=== PATIENT | male | born 1955 | race Caucasian/White ===

== ENCOUNTER → 2018-12-18 | Outpatient (CLI) | payer MEDICARE, BC ==
[~2018-12-18] MED LIST: ASPI1CHW3 PO; ATOR80TA59 PO; CENT1TAB PO; CONRAY-43 43% 50ML VIAL (Q9960) As Ordered ONE; HYDR25TA PO; KEFL500C17 PO; LABE200T32 PO; LIDOCAINE 1% MDV 20ML VIAL As Ordered ONE; MAGO400T2 PO; NEUR300C PO; NITR0.4D6 TD; NITR0.4S14 SL; NORV5TAB PO; OMEP-218 PO; PERC5TAB12 PO; PLAV1TAB2 PO; TRIAMCINOLONE ACETONIDE SUSP 40 MG/ML VIAL (J3301) As Ordered ONE; TYLE650T35 PO; VALS1TAB67 PO; XARE10TA PO
--- NOTE | 2018-12-19 10:08 | REP ---
Reason For Exam/Comment: Osteoarthritis of the left hip Procedure: Left hip arthrocentesis The procedure was performed by RENATA Bonner, under the direct supervision of Dr. Ford. The benefits and risks including but not limited to pain, infection, bleeding and anaphylaxis were explained to the patient and informed consent was obtained both verbally and written. Directly prior to the start of the procedure, a formal timeout was completed in the procedure room. The left femoral neck was localized using fluoroscopic guidance. The skin was prepped and draped in the usual sterile fashion. 5 mL of 1% lidocaine was used as a local anesthetic. Using fluoroscopic guidance a 22-gauge spinal needle was inserted and advanced to the femoral neck joint space. 2 mL of Conray 43 was injected to verify needle placement. A 6 mL solution containing a 5 mL 1% lidocaine 10 mg/ml and 1 mL of Kenalog 40 mg/ml was injected into the joint. The needle was removed and hemostasis was achieved. The patient tolerated the procedure well and there were no immediate complications. 0.1 minutes of fluoroscopy time was utilized for this procedure. Some fluoroscopic images are performed with last image hold technology. These images require no additional radiation. Reviewed by RENATA Hnies 12/18/2018 12:00 P Electronically Signed by Asa Ford MD 12/19/2018 10:00 A
== END ==
LOC: M RADPRO 09:50
PROVIDERS: ATTEND Orthopaedic Surgery
DX: M16.12 Unilateral primary osteoarthritis, left hip (principal)
CPT/HCPCS: 20610; 77002; J3301; Q9960

== ENCOUNTER → 2019-03-20 | Outpatient (CLI) | payer MEDICARE, BC ==
[~2019-03-20] MED LIST changes: -ASPI1CHW3 PO; +ASPI81CH44 PO; -CONRAY-43 43% 50ML VIAL (Q9960) As Ordered ONE; -KEFL500C17 PO; -LIDOCAINE 1% MDV 20ML VIAL As Ordered ONE; -PERC5TAB12 PO; -TRIAMCINOLONE ACETONIDE SUSP 40 MG/ML VIAL (J3301) As Ordered ONE; -XARE10TA PO
[2019-03-20 09:22] LABS: HEMATOCRIT 38.9 % (42.0-52.0); HEMOGLOBIN 12.6 g/dl (13.5-17.5); MEAN CORPUSCULAR HEMOGLOBIN 28.8 pg (27.0-33.0); MEAN CORPUSCULAR HGB CONC 32.4 g/dl (32.0-36.5); PLATELET COUNT, AUTOMATED 265 10^3/uL (150-450); RED BLOOD COUNT 4.37 10^6/uL (4.30-6.10); WHITE BLOOD COUNT 7.2 10^3/uL (4.0-10.0)
[2019-03-20 09:33] LABS: INR 0.99; PROTHROMBIN TIME 12.8 SECONDS (11.8-14.0)
[2019-03-20 09:49] LABS: ALBUMIN 3.9 GM/DL (3.2-5.2); ALT/SGPT 62 U/L (12-78); BILIRUBIN,TOTAL 0.7 MG/DL (0.2-1.0); BLOOD UREA NITROGEN 13 MG/DL (7-18); CALCIUM LEVEL 9.6 MG/DL (8.8-10.2); CARBON DIOXIDE LEVEL 29 MEQ/L (21-32); CHLORIDE LEVEL 103 MEQ/L (98-107); CREATININE FOR GFR 1.15 MG/DL (0.70-1.30); GLOMERULAR FILTRATION RATE > 60.0 (>49); GLUCOSE, FASTING 114 MG/DL (70-100); POTASSIUM SERUM 4.3 MEQ/L (3.5-5.1); SODIUM LEVEL 139 MEQ/L (136-145); TOTAL PROTEIN 7.4 GM/DL (6.4-8.2)
[2019-03-20 09:57] LABS: ERYTHROCYTE SEDIMENTATION RATE 21 mm/hr (0-20)
--- NOTE | 2019-03-20 10:37 | REP ---
PA and lateral chest: There are no comparisons. The there is a 10 mm nodule in the left costophrenic angle. In the absence of comparison studies to document stability, I would recommend chest CT for further evaluation. The lung david otherwise clear. Cardiac size is upper normal. The reina, mediastinum, and skeletal structures are unremarkable. Impression: 10 mm nodule in the left costophrenic angle. Follow-up CT is recommended in the absence of comparison studies to document stability. Otherwise, negative PA and lateral chest. Electronically Signed by Asa Rodriguez MD 03/20/2019 10:29 A
--- NOTE | 2019-03-21 10:03 | ECGEPIP ---
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
== END ==
LOC: M LAB 08:33
PROVIDERS: ATTEND Orthopaedic Surgery
DX: M16.12 Unilateral primary osteoarthritis, left hip (principal)

== ENCOUNTER 2019-04-06 10:54 | Inpatient (IN) | payer MEDICARE, BC ==
--- NOTE | 2019-03-31 17:04 | HPE ---
DATE OF SCHEDULED ADMISSION: 04/06/2019 ATTENDING PHYSICIAN: Dr. Imer Sargent CHIEF COMPLAINT: Left hip pain and stiffness. HISTORY: The patient is a 63-year-old male with progressively worsening left hip pain and stiffness. He failed to improve with conservative measures. He continues to have symptoms with weightbearing activities and activities of daily living. He consented for an elective left total hip arthroplasty with Dr. Sargent for his continued symptoms. Medical optimization pending with Dr. Sofia and was not available for review. CURRENT MEDICATIONS: - valsartan 160 mg every evening - amlodipine 5 mg daily - aspirin 81 mg daily - Plavix 75 mg daily - omeprazole 20 mg daily - hydralazine 25 mg daily - labetalol 200 mg twice daily - atorvastatin 80 mg every evening - gabapentin 300 mg twice daily - MagOx 400 mg daily - nitroglycerin 0.4 mg as needed ALLERGIES: CIPROFLOXACIN. CHRONIC MEDICAL CONDITIONS: Hypertension, hyperlipidemia, gastroesophageal reflux disease, history of acute myocardial infarction, arthritis. PAST SURGICAL HISTORY: Coronary artery stenting. SOCIAL HISTORY: The patient is a former smoker and does use alcohol daily. REVIEW OF SYSTEMS: The patient denies fevers, chills, nausea, vomiting or diarrhea. Denies chest pain, shortness of breath, lightheadedness, dizziness or headaches. Denies any recent upper respiratory or urinary tract infection symptoms. He continues to have left hip pain with weightbearing activities and activities of daily living. PHYSICAL EXAMINATION: General: Well-nourished, well-developed male in no apparent distress. He is alert, oriented and cooperative. Mood and affect are appropriate. Vital signs: Height 66 inches, weight 162 pounds, temperature 98.6, blood pressure 120/78, heart rate 64, respirations 17. Neck: Supple without lymphadenopathy. Heart: Regular rate and rhythm. Lungs: Clear to auscultation bilaterally. Abdomen: Soft, nontender to palpation. Bowel sounds are present. Musculoskeletal: Left hip exhibits no gross abnormalities. Skin is intact. The patient has tenderness to palpation along the groin. He does have decreased internal rotation of the hip with associated pain. Left lower extremity strength is 5/5. Calf is soft, nontender to palpation with no palpable cords noted. He is neurovascularly intact distally. LABORATORY DATA: Chest x-ray: 10 mm nodule in the left costophrenic angle, recommending a CT scan. Otherwise negative PA and lateral chest. EKG: Sinus rhythm. Pro-thrombin time 12.8, INR 0.99. Comprehensive metabolic profile: Fasting glucose elevated at 114, BUN 13, creatinine 1.15, GFR greater than 60. Sodium 139, potassium 4.3, chloride 103, carbon dioxide 29, anion gap decreased at 7, calcium 9.6, AST 35, ALT 62, alkaline phosphatase 104, total bilirubin 0.4, total protein 7.4, albumin 3.9, albumin-globulin ratio 1.11. Complete blood count, ESR elevated at 21, WBCs 7.2, RBCs 4.37, hemoglobin decreased at 12.6, hematocrit decreased at 38.9, platelets 265. IMPRESSION: Left hip osteoarthritis with x-rays notable for end-stage degenerative changes. PLAN: The patient has consented for an elective left total hip arthroplasty with Dr. Sargent for his continued symptoms. Medical optimization is pending with Dr. Sofia. We will ensure Dr. Sofia is aware of the patient's pulmonary nodule and has appropriate follow-up. This should not delay surgery. CHANELL
[~2019-04-06] VITALS: Ht 167.6 cm; Wt 72.5 kg
[2019-04-06] VITALS (7 sets, daily range): BP systolic 148–175; BP diastolic 70–86
[~2019-04-06 10:54] MED LIST changes: +LR 1,000 ML IV ONE; +ceFAZolin SOD 2 GM in IV 1 EA IV ONE
[2019-04-06] MEDS ORDERED: BUPIVACAINE HCL 0.5% 30 ML VIAL As Ordered ONE (12:23)
[2019-04-06] MEDS ORDERED: LIDOCAINE 2% INJ 100 MG/5 ML SDV (FOR ANES.) As Ordered ONE (12:23)
[2019-04-06] MEDS ORDERED: ONDANSETRON 4MG/2ML VIAL (J2405) As Ordered ONE (12:23)
[2019-04-06] MEDS ORDERED: MIDAZOLAM INJ 2 MG/2 ML VIAL (J2250) As Ordered ONE (12:24)
[2019-04-06] MEDS ORDERED: fentaNYL 100 MCG/2 ML INJECTION (J3010) As Ordered ONE (12:24)
[2019-04-06] MEDS ORDERED: PROPOFOL 500 MG/50 ML VIAL As Ordered ONE (12:26)
[2019-04-06] MEDS ORDERED: TRANEXAMIC ACID 100 MG/ML 10ML VIAL As Ordered ONE (13:25)
[2019-04-06] MEDS ORDERED: ceFAZolin 1GM INJ (J0690 PER 500MG) As Ordered ONE (13:25)
[2019-04-06] MEDS ORDERED: EPINEPHrine INJ 1 MG/ML 1ML AMP As Ordered ONE (13:25)
[2019-04-06] MEDS ORDERED: BUPIVACAINE LIPOSOME/PF 1.3% 20ML VIAL (13.3MG/ML)(EXPAREL)(C9290 PER1MG) As Ordered ONE (13:26)
--- NOTE | 2019-04-06 13:50 | HPE ---
DATE OF ADMISSION: 04/06/2019 The patient seen and examined. He wishes to g o ahead with a left total hip arthroplasty. He understands the nature of this, the risks of bleeding, infection, damage to nerves, vessels, persistent pain, wear loosening, dislocation, leg length inequality, blood clots, medical problems, , among others. He understands the alternative weightbearing surfaces. A preoperative clearance was obtained. There was a chest x-ray abnormality that is going to be followed up by his primary.
[2019-04-06] MEDS ORDERED: PHENYLephrine HCL 500 MCG/5 ML (100MCG/ML) SYRINGE (J2370) As Ordered ONE (14:52)
[2019-04-06] MEDS ORDERED: PROPOFOL 200 MG/20 ML VIAL As Ordered ONE (15:02)
[2019-04-06] MEDS ORDERED: FLEET ENEMA PR PRN (16:00)
[2019-04-06] MEDS ORDERED: ONDANSETRON 4MG/2ML VIAL (J2405) IV PRN ×2 (16:00)
[2019-04-06] MEDS ORDERED: PERCOCET 5MG/325MG TAB PO PRN (16:00)
[2019-04-06] MEDS ORDERED: LR 1,000 ML IV SCH ×2 (16:00)
[2019-04-06] MEDS ORDERED: fentaNYL 100 MCG/2 ML INJECTION (J3010) IV PRN (16:00)
[2019-04-06] MEDS ORDERED: MORPHINE 4 MG/ML 1ML VIAL/SYRINGE (J2270) IV PRN ×2 (16:00)
--- NOTE | 2019-04-06 16:52 | RO ---
DATE OF PROCEDURE: 04/06/2019 PREOPERATIVE DIAGNOSIS: Left hip osteoarthritis and avascular necrosis (AVN). POSTOPERATIVE DIAGNOSIS: Left hip osteoarthritis and avascular necrosis. PROCEDURE: Left hip total hip arthroplasty using a DePuy Isabella size 4 standard +1.5 36 ball and 52 acetabular component. SURGEON: Imer Sargent MD HISTOLOGIC AIDE: MORE Davalos ESTIMATED BLOOD LOSS: 200 mL. COMPLICATIONS: None. INDICATIONS: This is a 63-year-old gentleman who has had gradually worsening left hip pain. He has x-ray evidence of AVN and arthritis. He wished to go ahead with surgical treatment. He understood the nature of this, the risks. He had trialed conservative management. DESCRIPTION OF PROCEDURE: The patient was taken to the operating room and placed in the right lateral decubitus position on the [place] positioner. The left hip was prepped and draped in the usual sterile fashion. A time-out was performed. I then created a longitudinal incision over the lateral aspect of the hip. Sharp dissection was carried down through subcutaneous tissue. I controlled hemostasis with cautery, incised the fascia calli and then divided the anterior 40% of the abductor off of the anterior aspect of the hip exposing the femur. I was then able to dislocate the hip without difficulty and put the leg in the bag. The canal initiating reamer followed by the canal finding reamer, lateralizing reamer and then sequentially reamed up to a size 4, which had good purchase. We templated a 4 to a 5. I then cut the head off with a saw at about three-quarters of a fingerbreadth up from the lesser trochanter. I then directed attention to the acetabulum. Anterior-posterior retractors were placed. I removed soft tissue from around the acetabulum and then sequentially reamed up to a size 51, which had good bleeding bone, good concentric reaming. I was able to medialize . I then selected a 52 cup, impacted this in place in the appropriate amount of anteversion and horizontal tilt. The cup was well seated, very solid. I then placed the apex hole eliminator, placed the polyethylene 36 x 52, impacted this in place, made sure it was seated with a [place]. I then directed attention back to the femur and sequentially broached up to a size 4, which had excellent fit and fill and was just about at the neck cut. I then trialed off of this and a +1.5 standard seemed to be the most appropriate fit. Excellent stability, soft tissue tension. There was minimal shuck in full extension. There was no instability with extension external rotation or flexion internal rotation. I had irrigated multiple times. I then removed the trial components and irrigated again. I placed the Exparel in the deep tissues, impacted the actual stem in, size 4 standard, made sure it was well seated, then dried the Ariel taper, impacted the head on and reduced the hip with the cashier assistant's help. I then put the hip through range of motion. Excellent stability and range of motion were noted. Minimal shuck noted. TXA was placed in the deep tissues. I then did a final deep irrigation and repaired the minimus with #1 Vicryl suture, the abductor with #1 Vicryl suture with several stitches being placed through bone. Irrigated, repaired the fascia calli with #1 Vicryl suture and running Stratafix in both directions. I then irrigated, closed the subcu with #2-0 Vicryl and the skin with merritt. Sterile dressing was applied. He was taken to the recovery room in stable condition. There were no known complications. The plan will be routine postop. The cashier assistant was instrumental in holding retractors and assisting in reducing and dislocating the hip and assisting in wound closure.
--- NOTE | 2019-04-06 17:06 | HPEPDOC ---
General Date of Admission Apr 06, 2019 at 10:54 Date of Service: Apr 06, 2019 Attending Physician: CLEVELAND HOLLY MD Chief Complaint The patient is a 63-year-old male admitted with a reason for visit of Arthritis Left Hip. Source: Patient, RN/MD Exam Limitations: Physical impairment Timing/Duration: Week(s), Getting worse, Changing over time Severity: Severe Associated Symptoms: Other (pain status post left total hip arthroplasty) History of Present Illness Consultation patient referred by Dr. Sargent orthopedic surgeon for medical hospitalist to evaluate patient for medical clearance 63-year-old male was seen today in his room on [address], by medical hospitalist nurse practitioner. He is status post left total hip arthroplasty completed by Dr. Sargent this afternoon due to worsening left hip pain and stiffness, but did not improve after conservative measures. His vital signs are stable. Blood pressure 154/81. He is currently on 2 L of nasal cannula saturating at 100% at this time. Mr. Lyons has significant medical history of dyslipidemia, essential hypertension, osteoarthritis, GERD, coronary artery disease with stent, prior nicotine abuse of cigarettes, continue alcohol use daily, chest pain, and history of old myocardial infarctionx2. Home Medications Scheduled Amlodipine Besylate (Norvasc) 5 Mg Tablet, 5 MG PO DAILY, (Reported) Aspirin (Aspirin) 81 Mg Tab.chew, 81 MG PO DAILY, (Reported) Atorvastatin Calcium (Atorvastatin Calcium) 80 Mg Tablet, 80 MG PO DAILY, (Reported) Clopidogrel Bisulfate (Plavix) 75 Mg Tablet, 75 MG PO DAILY, (Reported) Gabapentin (Neurontin) 300 Mg Capsule, 300 MG PO TID, (Reported) Hydralazine HCl (Hydralazine HCl) 25 Mg Tablet, 25 MG PO BID, (Reported) Labetalol HCl (Labetalol HCl) 200 Mg Tablet, 200 MG PO BID, (Reported) Magnesium Oxide (Magox 400) 400 Mg Tablet, 400 MG PO DAILY, (Reported) Multivit-Min/FA/Lycopen/Lutein (Centrum Silver Tablet) 1 Each Tablet, 1 TAB PO DAILY, (Reported) Nitroglycerin (Nitroglycerin Patch) 0.4 Mg/Hr Patch.td24, 0.4 MG TD DAILY, (Reported) Omeprazole (Omeprazole) 20 Mg Capsule.dr, 20 MG PO DAILY, (Reported) Valsartan (Valsartan) 160 Mg Tablet, 160 MG PO DAILY, (Reported) Scheduled PRN Acetaminophen (Tylenol Arthritis) 650 Mg Tablet.er, 650 MG PO Q8H PRN for PAIN, (Reported) Miscellaneous Medications Nitroglycerin (Nitroglycerin) 0.4 Mg Tab.subl, 0.4 MG SL, (Reported) Allergies Coded Allergies: ciprofloxacin (Verified Allergy, Unknown, DIFFICULTY BREATHING, 03/23/19) Past Medical History Medical History See HPI Surgical History Coronary artery stents, left total hip arthroplasty Family History Significant Family History: Hypertension Social History * Smoker: former Smoker, cigarettes Alcohol: heavy Drugs: prescription drugs Recent Travel/Sick Contacts: Denies: Recent travel, Recent sick contacts Psychosocial History: Supa SI and HI A-FIB/CHADSVASC A-FIB History Current/History of A-Fib/PAF?: No Review of Systems Constitutional: Reports: Weakness, Fatigue; Denies: Chills, Fever, Malaise, Night Sweats, Weight Loss, Lethargy, Other Eyes: Reports: Pain ENT: Denies: Head Aches, Ear Pain, Dysphagia, Sinus Congestion, Post Nasal Drip, Sore Throat, Epistaxis, Other Symptoms Skin: Denies: Rash, Lesions, Jaundice, Bruising, Itching, Dry, Breakdown, Nail Changes, Other Pulmonary: Reports: Dyspnea; Denies: Cough, Pleuritic Chest Pain, Other Symptoms Cardiovascular: Denies: Chest Pain, Palpitations, Orthopnea, Paroxysmal Noc. Dyspnea, Edema, Lt Headedness, Other Symptoms Gastrointestinal: Reports: Nausea Genitourinary: Denies: Dysuria, Frequency, Incontinence, Hematuria, Retention, Other Symptoms Hematologic: Reports: Bruising Endocrine: Denies: Polydipsia, Polyphagia, Polyuria, Heat Intolerance, Cold Intolerance, Other Endocrine Sx Musculoskeletal: Reports: Leg Pain (left hip), Joint Pain; Denies: Neck Pain, Back Pain, Shoulder Pain, Arm Pain, Hand Pain, Foot Pain, Muscle Pain, Spasms, Other Symptoms Neurological: Reports: Weakness Psych: Denies: Mood Normal, Anxiety, Depression, Memory Issues, Thoughts of Self Harm, Anger, Thoughts of Harming Other, Other Psych Physical Examination General Exam: Positive: Alert, Cooperative, Mild Distress Eye Exam: Positive: PERRLA ENT Exam: Positive: Atraumatic, Mucous membr. moist/pink, Pharynx Normal, Tongue Midline Neck Exam: Positive: Supple, +2 carotid pulse wo bruit Chest Exam: Positive: Clear to auscultation, Normal air movement Heart Exam: Positive: Rate Normal, Regular Rhythm, Normal S1, Normal S2 Abdomen Exam: Positive: Normal bowel sounds, Soft Extremity Exam: Positive: Edema (left lower extremity), Tenderness (left hip and trochanter), Swelling (left hip and trochanter) Skin Exam: Positive: Other skin issue (dressing to left hip intact) Neuro Exam: Positive: Normal Speech, Cranial Nerves 3-12 NL Psych Exam: Positive: Anxiety, Oriented x 3 Vital Signs Vital Signs Date Time Temp Pulse Resp B/P (MAP) Pulse Ox O2 Delivery O2 Flow Rate FiO2 04/06/19 16:25 97.1 60 16 154/81 (105) 100 Nasal Cannula 2 RAD Interpretation STUDY: personally reviewed chucho Santos Actions: Report Reviewed (The patient is status post left hip arthroplasty. Lateral skin), Films Reviewed (shows pens in patient's left hip 1 personally reviewed) Problems (1) Status post total hip replacement, left Status: Acute Discussed With: Patient Problem Specific Plan: Monitor Clinically Problem Text: 63-year-old male was seen today in his room on , by medical hospitalist nurse practitioner. He is status post left total hip arthroplasty completed by Dr. Sargent this afternoon due to worsening left hip pain and stiffness, but did not improve after conservative measures. Status post left total hip replacementacute Cefazolin 2GM IV q 8 hours Continue treatment plan. Followed by orthopedic surgeon Monitor CBC with differential, PT/INR, CMP Monitor patient's pain. His pain medicine. According to orthopedic surgeons order:Oxycodone 05/325 one by mouth every 4 for mild pain; Morphine sulfate 2 mg IV every 2 hours; Morphine sulfate 3 mg IV every 2 hours for severe pain Monitor I&O's and vital signs, weight Cardiac diet, light patient should be on full liquid diet due to his nausea and advance as needed Nauseaacute Zofran 4 mg by mouth now. Nurse will monitor patient for nausea and vomiting. Patient continued to drink neto bull sparingly, saltine crackers given. Will avoid heavy foods and dairy and creams at this time. Nausea is more likely due to the anesthesia she received during his procedure. Zofran 4 mg IV every 6 hours when necessary nausea and vomiting Dizziness.Acute We'll monitor patient's vital signs current blood pressure is elevated due to him not taking medication before his procedure. Will keep patient on supplemental oxygen 2-3 L per nasal cannula. Pulse ox imaging monitoring and intermittent telemetry Chest x-ray AP/ Lat now- Hypertensive urgency with essential hypertension.Acute on chronic Apresoline 10 mg by mouth now. Will monitor patient's blood pressure. Goal rate. Due to his history of cardiac hypertensive heart disease with 2 MIs is systolic blood pressure 140/80. . Clonidine 0.1 mg by mouth every 4 hours as needed for systolic blood pressure greater than then 160/90 and/or heart rate 100. We'll not give patient IV fluids as this will cause his blood pressure to increase. Patient will resume home blood pressure medication: Norvasc 5 mg by mouth daily, hydralazine 25 mg by mouth twice a day,, labetalol 20 mg twice a day GERDchronic Continue omeprazole 20 mg [place],chronic Continue- nitroglycerin patch 0.4 mg daily, nitroglycerin 0.4 mg sublingual every 5 minutes as needed for chest pain; valsartan 160 mg Dyslipidemia.Chronic Patient is on atorvastatin 80 mg at home. Will change to 40 mg by mouth daily the hospital to decrease risk for rhabdomyolysis Neuropathychronic Continue gabapentin 300 mg by mouth 3 times a day PPTcontinue omeprazole 20 mg by mouth daily DVT ProphylaxisXarelto 10 mg by mouth daily Discharge pending orthopedics surgeon Plan / VTE VTE Prophylaxis Ordered?: Yes VTE Exclusion Mechanical Proph: N/A:VTE Prophy Ordered VTE Exclusion Pharmacological: Bleeding Risk Plan IVF: Continue Diet: Continue Current Activity: Continue Current Respiratory: Wean Oxygen Diagnostics: Check Labs, Repeat Labs in AM, Xrays (chest) SHAWANDA KEYS Apr 06, 2019 17:06
--- NOTE | 2019-04-06 17:18 | REP ---
Left hip: Two views. History: Postop evaluation. Findings: The patient is status post left hip arthroplasty. Lateral skin merritt are noted. Arthroplasty components are well aligned. Impression: Status post left hip arthroplasty. Electronically Signed by Juan Valderrama MD 04/07/2019 07:48 A
[2019-04-06] MEDS ORDERED: cloNIDine 0.1 MG TAB PO PRN (18:00)
[2019-04-06] MEDS ORDERED: **hydrALAZINE** 10 MG TAB PO ONE (18:00)
[2019-04-06] MEDS: PERCOCET 5MG/325MG TAB PO PRN ×2 (19:14→23:34)
[2019-04-06] MEDS ORDERED: NITROGLYCERIN 0.4 MG SUBL TABLET SL PRN (19:15)
[2019-04-06 20:28] LABS: BASO # 0.1 10^3/uL (0.0-0.2); BASO % 0.5 % (0.0-1.0); EOS # 0.2 10^3/uL (0.0-0.5); EOS % 2.2 % (0.0-3.0); HEMATOCRIT 34.3 % (42.0-52.0); HEMOGLOBIN 11.1 g/dl (13.5-17.5); LYMPH # 0.7 10^3/uL (1.5-5.0); LYMPH % 6.9 % (24.0-44.0); MEAN CORPUSCULAR HEMOGLOBIN 29.3 pg (27.0-33.0); MEAN CORPUSCULAR HGB CONC 32.4 g/dl (32.0-36.5); MEAN CORPUSCULAR VOLUME 90.5 fl (80.0-96.0); MONO # 0.8 10^3/uL (0.0-0.8); MONO % 8.5 % (0.0-5.0); NEUTROPHILS # 7.7 10^3/uL (1.5-8.5); NEUTROPHILS % 81.5 % (36.0-66.0); PLATELET COUNT, AUTOMATED 225 10^3/uL (150-450); RED BLOOD COUNT 3.79 10^6/uL (4.30-6.10); WHITE BLOOD COUNT 9.4 10^3/uL (4.0-10.0)
[2019-04-06 20:59] LABS: ALBUMIN 3.1 GM/DL (3.2-5.2); ALT/SGPT 35 U/L (12-78); BILIRUBIN,TOTAL 0.4 MG/DL (0.2-1.0); BLOOD UREA NITROGEN 13 MG/DL (7-18); CALCIUM LEVEL 8.5 MG/DL (8.8-10.2); CARBON DIOXIDE LEVEL 28 MEQ/L (21-32); CHLORIDE LEVEL 107 MEQ/L (98-107); CREATININE FOR GFR 1.02 MG/DL (0.70-1.30); GLOMERULAR FILTRATION RATE > 60.0 (>49); GLUCOSE, FASTING 137 MG/DL (70-100); MAGNESIUM LEVEL 1.2 MG/DL (1.8-2.4); POTASSIUM SERUM 3.4 MEQ/L (3.5-5.1); SODIUM LEVEL 141 MEQ/L (136-145); TOTAL PROTEIN 6.1 GM/DL (6.4-8.2)
[2019-04-06 21:01] LABS: CK-MB VALUE MASS 2.9 NG/ML (<3.6); MB/CK RELATIVE INDEX 1.15 (< OR =4)
[2019-04-06] MEDS: GABAPENTIN 300 MG CAP PO SCH (21:50)
[2019-04-06] MEDS: LABETALOL 200 MG TAB PO SCH (21:50)
[2019-04-06] MEDS: **hydrALAZINE HCL** 25 MG TAB PO SCH (21:51)
[2019-04-06] MEDS: ceFAZolin SOD 2 GM in IV 1 EA IV SCH (21:51)
[2019-04-07 02:14] VITALS: BP 145/71
[2019-04-07] MEDS: PERCOCET 5MG/325MG TAB PO PRN ×3 (04:17→18:19)
[2019-04-07] MEDS: ceFAZolin SOD 2 GM in IV 1 EA IV SCH (05:11)
[2019-04-07 05:55] VITALS: BP 143/70
[2019-04-07] MEDS ORDERED: XARE10TA PO (06:27)
[2019-04-07] MEDS ORDERED: PERC5TAB12 PO (06:27)
[2019-04-07] MEDS ORDERED: MORPHINE 4 MG/ML 1ML VIAL/SYRINGE (J2270) IV ONE (06:30)
[2019-04-07 06:33] LABS: HEMATOCRIT 33.6 % (42.0-52.0); HEMOGLOBIN 10.6 g/dl (13.5-17.5); MEAN CORPUSCULAR HEMOGLOBIN 28.7 pg (27.0-33.0); MEAN CORPUSCULAR HGB CONC 31.5 g/dl (32.0-36.5); MEAN CORPUSCULAR VOLUME 91.1 fl (80.0-96.0); PLATELET COUNT, AUTOMATED 216 10^3/uL (150-450); RED BLOOD COUNT 3.69 10^6/uL (4.30-6.10); WHITE BLOOD COUNT 9.1 10^3/uL (4.0-10.0)
--- NOTE | 2019-04-07 07:48 | REP ---
Clinical: Shortness of breath . Comparison: 03/20/2019 . Findings: The mediastinum and cardiac silhouette are stable and within normal limits for portable technique. The lung david are clear without acute consolidation, effusion, or pneumothorax. Stable calcified granuloma in the left base. Skeletal structures are intact. Impression: No acute cardiopulmonary process appreciated. Electronically Signed by Yaniv Gutierrez MD 04/07/2019 07:39 A
[2019-04-07] MEDS: MOM 30ML SUSPENSION UDC PO SCH (09:35)
[2019-04-07] MEDS: MIRALAX *UNIT DOSE* 17GM PACKET PO SCH (09:35)
[2019-04-07] MEDS: ATORVASTATIN 20 MG TAB PO SCH (09:36)
[2019-04-07] MEDS: MORPHINE 15 MG SA TAB PO SCH ×2 (09:36→21:21)
[2019-04-07] MEDS: VALSARTAN 80 MG TAB (DIOVAN) PO SCH (09:37)
[2019-04-07] MEDS: LABETALOL 200 MG TAB PO SCH ×2 (09:37→21:20)
[2019-04-07] MEDS: **hydrALAZINE HCL** 25 MG TAB PO SCH ×2 (09:37→21:20)
[2019-04-07] MEDS: OMEPRAZOLE 20 MG CAP PO SCH (09:37)
[2019-04-07] MEDS: NITROGLYCERIN 0.4 MG/HR PATCH TD SCH (09:38)
[2019-04-07] MEDS: MAGNESIUM OXIDE 400 MG TAB (MAG-OX) PO SCH (09:38)
[2019-04-07] MEDS: GABAPENTIN 300 MG CAP PO SCH ×3 (09:38→21:20)
[2019-04-07] MEDS: MULTIVITAMINS/MINERALS THERAP 1 TAB PO SCH (09:38)
[2019-04-07] MEDS: amLODIPine 5 MG TAB PO SCH (09:38)
[2019-04-07 15:23] VITALS: BP 134/72
[2019-04-07] MEDS: RIVAROXABAN 10 MG TAB (XARELTO) PO SCH (16:59)
--- NOTE | 2019-04-07 17:07 | IPNPDOC ---
Text Note Date of Service The patient was seen on 04/07/19. NOTE SUBJECTIVE: Mr. Lyons is postop day #1 from left hip total arthroplasty. He does no remarkable pain. He has been up on his feet today and had been up yesterday as well. OBJECTIVE: Please see vital signs below Physical exam: HENT: Neck is supple with no adenopathy or thyromegaly, oral mucosa is moist. Cardiovascular: The patient has irregular rhythm, but generally regular rate, no distinct murmur. Respiratory: Clear to auscultation. Abdomen: Soft, nontender, nondistended, bowel tones are present. Extremities: The left hip operative site is intact and dressed with no drainage. There is some mild bruising. Distally, there is no edema and pedal pulses are palpable Neuro: No focal neuromotor or sensory deficit ASSESSMENT/PLAN: Mr. Lyons is postop day #1 from left hip total arthroplasty due to avascular necrosis. He has done remarkably well, although he doesn't think so. His greatest challenge is pain control. He is concerned that he will not be able to go home and have to go to shelter; if he does have to go to shelter he would like to go to [place]. I have reassured the patient that this is only postop day #1 and that things will get better. We will continue to adjust his pain medicines as needed, preferably a fully oral regimen. VS,Fishbone, I+O VS, Fishbone, I+O Laboratory Tests 04/06/19 20:15 04/06/19 20:16 04/07/19 06:05 Vital Signs Date Time Temp Pulse Resp B/P (MAP) Pulse Ox O2 Delivery O2 Flow Rate FiO2 04/07/19 15:23 99.2 92 19 134/72 (92) 95 Room Air 04/07/19 05:55 2.0 I&O- Last 24 Hours up to 6 AM 04/07/19 06:00 Intake Total 1880 ml Output Total 630 ml Balance 1250 ml CLEVELAND HOLLY MD Apr 07, 2019 17:07
[2019-04-07 22:00] VITALS: BP 125/61
[2019-04-08] MEDS: PERCOCET 5MG/325MG TAB PO PRN (05:08)
[2019-04-08 06:00] VITALS: BP 119/62
[2019-04-08] MEDS: MOM 30ML SUSPENSION UDC PO SCH (08:44)
[2019-04-08] MEDS: ATORVASTATIN 20 MG TAB PO SCH (08:45)
[2019-04-08] MEDS: OMEPRAZOLE 20 MG CAP PO SCH (08:45)
[2019-04-08] MEDS: MIRALAX *UNIT DOSE* 17GM PACKET PO SCH (08:45)
[2019-04-08] MEDS: amLODIPine 5 MG TAB PO SCH (08:45)
[2019-04-08] MEDS: MORPHINE 15 MG SA TAB PO SCH ×2 (08:46→21:10)
[2019-04-08] MEDS: **hydrALAZINE HCL** 25 MG TAB PO SCH ×2 (08:47→21:09)
[2019-04-08] MEDS: VALSARTAN 80 MG TAB (DIOVAN) PO SCH (08:47)
[2019-04-08] MEDS: MULTIVITAMINS/MINERALS THERAP 1 TAB PO SCH (08:47)
[2019-04-08] MEDS: MAGNESIUM OXIDE 400 MG TAB (MAG-OX) PO SCH (08:47)
[2019-04-08] MEDS: LABETALOL 200 MG TAB PO SCH ×2 (08:48→21:09)
[2019-04-08] MEDS: GABAPENTIN 300 MG CAP PO SCH ×3 (08:48→21:09)
[2019-04-08] MEDS: NITROGLYCERIN 0.4 MG/HR PATCH TD SCH (08:50)
[2019-04-08 14:00] VITALS: BP 100/52
[2019-04-08] MEDS: ACETAMINOPHEN TAB 650MG DOSE (2X325MG) PO PRN (14:28)
--- NOTE | 2019-04-08 16:57 | IPNPDOC ---
Text Note Date of Service The patient was seen on 04/08/19. NOTE SUBJECTIVE: Mr. Lyons is postop day #2 from left hip total arthroplasty. He does have pain, but it is controllable. Patient states he has walked in the hallway with physical therapy. OBJECTIVE: Please see vital signs below Physical exam: HENT: Neck is supple with no adenopathy or thyromegaly, oral mucosa is moist. Cardiovascular: The patient has irregular rhythm, but generally regular rate, no distinct murmur. Respiratory: Clear to auscultation. Abdomen: Soft, nontender, nondistended, bowel tones are present. Extremities: The left hip operative site is intact and dressed with no drainage. There is some mild bruising. Distally, there is no edema and pedal pulses are palpable Neuro: No focal neuromotor or sensory deficit ASSESSMENT/PLAN: Mr. Lyons is postop day #1 from left hip total arthroplasty due to avascular necrosis. He has done remarkably well, although he doesn't think so. His greatest challenge is pain control. He is concerned that he will not be able to go home and have to go to detention; if he does have to go to detention he would like to go to [place]. I have reassured the patient that this is only postop day #1 and that things will get better. We will continue to adjust his pain medicines as needed, preferably a fully oral regimen. The patient also has concerns for constipation. He reports being nonresponsive to milk of magnesia and MiraLAX. He has tried other things that work for him such as coffee and yogurt. I will increase his bowel care for today. VS,Fishbone, I+O VS, Fishbone, I+O Vital Signs Date Time Temp Pulse Resp B/P (MAP) Pulse Ox O2 Delivery O2 Flow Rate FiO2 04/08/19 16:50 99.7 04/08/19 14:00 89 18 100/52 (68) 99 Room Air 04/07/19 05:55 2.0 I&O- Last 24 Hours up to 6 AM 04/08/19 06:00 Intake Total 1440 ml Output Total 350 ml Balance 1090 ml CLEVELAND HOLLY MD Apr 08, 2019 16:57
[2019-04-08] MEDS: RIVAROXABAN 10 MG TAB (XARELTO) PO SCH (17:19)
[2019-04-08] MEDS ORDERED: MAGNESIUM CITRATE 300 ML BTL PO ONE (18:00)
[2019-04-08 20:14] VITALS: BP 131/59
[2019-04-09 06:00] VITALS: BP 119/68
[2019-04-09] MEDS: NITROGLYCERIN 0.4 MG/HR PATCH TD SCH (08:29)
[2019-04-09] MEDS: MAGNESIUM OXIDE 400 MG TAB (MAG-OX) PO SCH (08:29)
[2019-04-09] MEDS: OMEPRAZOLE 20 MG CAP PO SCH (08:30)
[2019-04-09] MEDS: LABETALOL 200 MG TAB PO SCH (08:30)
[2019-04-09] MEDS: ATORVASTATIN 20 MG TAB PO SCH (08:30)
[2019-04-09] MEDS: amLODIPine 5 MG TAB PO SCH (08:30)
[2019-04-09] MEDS: **hydrALAZINE HCL** 25 MG TAB PO SCH ×2 (08:31→21:35)
[2019-04-09] MEDS: VALSARTAN 80 MG TAB (DIOVAN) PO SCH (08:31)
[2019-04-09] MEDS: MOM 30ML SUSPENSION UDC PO SCH (08:33)
[2019-04-09] MEDS: MIRALAX *UNIT DOSE* 17GM PACKET PO SCH (08:33)
[2019-04-09] MEDS: GABAPENTIN 300 MG CAP PO SCH ×3 (08:33→21:34)
[2019-04-09] MEDS: MULTIVITAMINS/MINERALS THERAP 1 TAB PO SCH (08:33)
[2019-04-09] MEDS: MORPHINE 15 MG SA TAB PO SCH ×2 (08:33→21:34)
[2019-04-09 09:23] VITALS: BP 102/52
[2019-04-09 09:53] VITALS: BP_SYST 100; BP_SYST 105; BP_SYST 106; BP_DIAS 54; BP_DIAS 56
[2019-04-09] MEDS: PERCOCET 5MG/325MG TAB PO PRN (13:41)
[2019-04-09 14:21] VITALS: BP 110/50
[2019-04-09] MEDS: ACETAMINOPHEN TAB 650MG DOSE (2X325MG) PO PRN (15:11)
[2019-04-09] MEDS: RIVAROXABAN 10 MG TAB (XARELTO) PO SCH (18:28)
[2019-04-09] MEDS ORDERED: NS 250 ML IV ONE (19:30)
--- NOTE | 2019-04-09 19:33 | IPNPDOC ---
Text Note Date of Service The patient was seen on 04/09/19. NOTE SUBJECTIVE: Mr. Lyons is postop day #3 from left hip total arthroplasty. He does have pain, but it is controllable. Patient states he has walked in the hallway with physical therapy. He reports having some dizziness. OBJECTIVE: Please see vital signs below--patient has had a MAXIMUM TEMPERATURE of 101.3 Physical exam: HENT: Neck is supple with no adenopathy or thyromegaly, oral mucosa is moist, no sweats or diaphoresis Cardiovascular: The patient has irregular rhythm, but generally regular rate, no distinct murmur. Respiratory: Clear to auscultation. Abdomen: Soft, nontender, nondistended, bowel tones are present. Extremities: The left hip operative site is intact and dressed with some serous drainage. There is some mild bruising. Distally, there is no edema and pedal pulses are palpable Neuro: No focal neuromotor or sensory deficit ASSESSMENT/PLAN: Mr. Lyons is postop day #1 from left hip total arthroplasty due to avascular necrosis. He has done remarkably well. His greatest challenge is pain control. We will continue to adjust his pain medicines as needed, preferably to a fully oral regimen. Patient has had some fever. He has not had leukocytosis. There is some serous drainage from the operative site; it is not purulent. Patient is performing incentive spirometry and we will continue to follow for signs of infection. The patient had concerns for constipation. He reports being nonresponsive to milk of magnesia and MiraLAX. He has tried other things that work for him such as coffee and yogurt. He did have response to magnesium citrate. The patient has had dizziness with being upright and with ambulation. Further conversation with the patient reveals that his labetalol dosage is incorrect. It had been decreased by his primary care provider to 100 mg per dose. The patient states he thought it was already included in his medication record. It has been corrected. However, we will hold the medication for now. VS,Fishbone, I+O VS, Fishbone, I+O Vital Signs Date Time Temp Pulse Resp B/P (MAP) Pulse Ox O2 Delivery O2 Flow Rate FiO2 04/09/19 14:21 101.3 91 20 110/50 (70) 92 04/09/19 14:11 Room Air 04/07/19 05:55 2.0 I&O- Last 24 Hours up to 6 AM 04/09/19 06:00 Intake Total 2100 ml Output Total 700 ml Balance 1400 ml CLEVELAND HOLLY MD Apr 09, 2019 19:33
[2019-04-09] MEDS ORDERED: METOCLOPRAMIDE INJ 10MG/2ML VIAL (J2765) IV SCH (20:00)
[2019-04-09] MEDS: LABETALOL 100 MG TAB PO SCH (21:00)
[2019-04-09 21:26] VITALS: BP 113/51
[2019-04-10 06:00] VITALS: BP 133/53
[2019-04-10 06:16] VITALS: BP 133/53
[2019-04-10 07:01] LABS: HEMATOCRIT 27.3 % (42.0-52.0); HEMOGLOBIN 8.7 g/dl (13.5-17.5); MEAN CORPUSCULAR HEMOGLOBIN 28.8 pg (27.0-33.0); MEAN CORPUSCULAR HGB CONC 31.9 g/dl (32.0-36.5); MEAN CORPUSCULAR VOLUME 90.4 fl (80.0-96.0); PLATELET COUNT, AUTOMATED 217 10^3/uL (150-450); RED BLOOD COUNT 3.02 10^6/uL (4.30-6.10); WHITE BLOOD COUNT 7.3 10^3/uL (4.0-10.0)
[2019-04-10] MEDS: PERCOCET 5MG/325MG TAB PO PRN ×3 (07:20→17:10)
[2019-04-10] MEDS: VALSARTAN 80 MG TAB (DIOVAN) PO SCH (09:00)
[2019-04-10] MEDS: ATORVASTATIN 20 MG TAB PO SCH (09:51)
[2019-04-10] MEDS: LABETALOL 100 MG TAB PO SCH ×2 (09:52→20:26)
[2019-04-10] MEDS: **hydrALAZINE HCL** 25 MG TAB PO SCH ×2 (09:52→20:28)
[2019-04-10] MEDS: GABAPENTIN 300 MG CAP PO SCH ×3 (09:52→20:25)
[2019-04-10] MEDS: MAGNESIUM OXIDE 400 MG TAB (MAG-OX) PO SCH (09:52)
[2019-04-10] MEDS: OMEPRAZOLE 20 MG CAP PO SCH (09:52)
[2019-04-10] MEDS: amLODIPine 5 MG TAB PO SCH (09:52)
[2019-04-10] MEDS: NITROGLYCERIN 0.4 MG/HR PATCH TD SCH (09:53)
[2019-04-10] MEDS: CEPHALEXIN 500 MG CAP PO SCH ×4 (09:53→20:25)
[2019-04-10] MEDS: MIRALAX *UNIT DOSE* 17GM PACKET PO SCH (09:53)
[2019-04-10] MEDS: MORPHINE 15 MG SA TAB PO SCH ×2 (09:53→20:27)
[2019-04-10] MEDS: MULTIVITAMINS/MINERALS THERAP 1 TAB PO SCH (09:53)
[2019-04-10] MEDS: MOM 30ML SUSPENSION UDC PO SCH (09:53)
[2019-04-10] MEDS: RIVAROXABAN 10 MG TAB (XARELTO) PO SCH (17:09)
--- NOTE | 2019-04-10 20:22 | IPNPDOC ---
Text Note Date of Service The patient was seen on 04/10/19. NOTE SUBJECTIVE: Mr. Lyons is postop day #4 from left hip total arthroplasty. He does have pain, but it is controllable. Patient states he has walked in the hallway with physical therapy. His dizziness is resolved. OBJECTIVE: Please see vital signs below--patient has had a MAXIMUM TEMPERATURE of 100.7 this morning; he has been afebrile since Physical exam: HENT: Neck is supple with no adenopathy or thyromegaly, oral mucosa is moist, no sweats or diaphoresis Cardiovascular: The patient has irregular rhythm, but generally regular rate, no distinct murmur. Respiratory: Clear to auscultation. Abdomen: Soft, nontender, nondistended, bowel tones are present. Extremities: The left hip operative site is intact and dressed with some serous drainage. There is some mild bruising. Distally, there is no edema and pedal pulses are palpable Neuro: No focal neuromotor or sensory deficit ASSESSMENT/PLAN: Mr. Lyons is postop day #4 from left hip total arthroplasty due to avascular necrosis. He has done remarkably well. Patient has had some fever. He has not had leukocytosis. There is some serous drainage from the operative site; it is not purulent. Patient is performing inc entive spirometry and we will continue to follow for signs of infection. The patient had concerns for constipation. He reports being nonresponsive to milk of magnesia and MiraLAX. He has tried other things that work for him such as coffee and yogurt. He did have response to magnesium citrate. The patient has had dizziness with being upright and with ambulation. Further conversation with the patient reveals that his labetalol dosage is incorrect. It had been decreased by his primary care provider to 100 mg per dose. The patient states he thought it was already included in his medication record. It has been corrected. However, we will hold the medication for now. VS,Fishbone, I+O VS, Fishbone, I+O Laboratory Tests 04/10/19 06:46 Vital Signs Date Time Temp Pulse Resp B/P (MAP) Pulse Ox O2 Delivery O2 Flow Rate FiO2 04/10/19 17:40 18 Room Air 04/10/19 09:53 133/53 04/10/19 09:52 94 04/10/19 06:19 100.7 90 04/07/19 05:55 2.0 I&O- Last 24 Hours up to 6 AM 04/10/19 06:00 Intake Total 900 ml Output Total 200 ml Balance 700 ml CLEVELAND HOLLY MD Apr 10, 2019 20:22
[2019-04-10 20:26] VITALS: BP 109/55
[2019-04-10] MEDS ORDERED: VALSARTAN 80 MG TAB (DIOVAN) PO SCH (21:00)
[2019-04-10 22:00] VITALS: BP 144/65
[2019-04-11] MEDS: PERCOCET 5MG/325MG TAB PO PRN ×2 (04:16→21:46)
[2019-04-11 06:00] VITALS: BP 109/56
[2019-04-11] MEDS: MOM 30ML SUSPENSION UDC PO SCH (08:27)
[2019-04-11] MEDS: OMEPRAZOLE 20 MG CAP PO SCH (08:28)
[2019-04-11] MEDS: CEPHALEXIN 500 MG CAP PO SCH ×4 (08:28→21:48)
[2019-04-11] MEDS: ATORVASTATIN 20 MG TAB PO SCH (08:28)
[2019-04-11] MEDS: MULTIVITAMINS/MINERALS THERAP 1 TAB PO SCH (08:28)
[2019-04-11] MEDS: GABAPENTIN 300 MG CAP PO SCH ×3 (08:28→21:48)
[2019-04-11] MEDS: MAGNESIUM OXIDE 400 MG TAB (MAG-OX) PO SCH (08:28)
[2019-04-11] MEDS: MIRALAX *UNIT DOSE* 17GM PACKET PO SCH (08:29)
[2019-04-11] MEDS: LABETALOL 100 MG TAB PO SCH ×2 (08:29→21:47)
[2019-04-11] MEDS: MORPHINE 15 MG SA TAB PO SCH (11:25)
[2019-04-11 13:30] LABS: BASO % 0.4 % (0.0-1.0); EOS # 0.2 10^3/uL (0.0-0.5); EOS % 2.3 % (0.0-3.0); HEMOGLOBIN 9.9 g/dl (13.5-17.5); LYMPH # 0.6 10^3/uL (1.5-5.0); MEAN CORPUSCULAR HGB CONC 31.9 g/dl (32.0-36.5); MEAN CORPUSCULAR VOLUME 90.9 fl (80.0-96.0); MONO # 0.8 10^3/uL (0.0-0.8); MONO % 10.7 % (0.0-5.0); NEUTROPHILS # 6.2 10^3/uL (1.5-8.5); NEUTROPHILS % 79.2 % (36.0-66.0); PLATELET COUNT, AUTOMATED 297 10^3/uL (150-450); RED BLOOD COUNT 3.41 10^6/uL (4.30-6.10); WHITE BLOOD COUNT 7.9 10^3/uL (4.0-10.0)
--- NOTE | 2019-04-11 15:16 | IPNPDOC ---
Text Note Date of Service The patient was seen on 04/11/19. NOTE SUBJECTIVE: Mr. Lyons is postop day #5 from left hip total arthroplasty. He is again having difficulty with dizziness, nausea and hypotension. Pain is otherwise controlled. OBJECTIVE: Please see vital signs below-patient has again had MAXIMUM TEMPERATURE of the 100.7 and is again afebrile. Physical exam: HENT: Neck is supple, no adenopathy or thyromegaly, oral mucosa is moist, no diaphoresis. Cardiovascular: Occasional irregular rhythm, generally regular rate, no murmur Respiratory: Good air movement with no abnormal breath sounds. Abdomen: Soft, nontender, nondistended. Extremities: The left hip operative site remains intact, but continues with serous drainage. Neuro: No focal neuromotor or sensory deficit ASSESSMENT/PLAN: Mr. Lyons is postop day #5 from left hip total arthroplasty due to avascular necrosis. He has done remarkably well from a mobility standpoint. However, intermittent dizziness when upright increased fall risk. Patient has not had remarkable postop blood loss. Patient has had some fever. He has not had leukocytosis. There is some serous drainage from the operative site; it is not purulent. Patient is performing in centive spirometry and we will continue to follow for signs of infection. The patient had concerns for constipation. He reported being nonresponsive to milk of magnesia and MiraLAX. He had tried other things that work for him such as coffee and yogurt. He did have response to magnesium citrate. Continues with postop bowel care. The patient has had dizziness with being upright and with ambulation. Further conversation with the patient reveals that his labetalol dosage is incorrect. It had been decreased by his primary care provider to 100 mg per dose. The patient states he thought it was already included in his medication record. It has been corrected. However, we will hold the medication for now. The patient does have a considerable history of hypertension; he has been on medications inclusive of clonidine, Norvasc, labetalol, hydralazine, valsartan. He likely has been having trouble with hypotension prior to admission; he had had to have the dosage of his labetalol and valsartan cut in half. I have reduced dose dosages with parameters and we are holding the hydralazine and Norvasc. I have stopped the clonidine entirely. I am also transitioning him from the [facility] as this may be contributory. VS,Fishbone, I+O VS, Fishbone, I+O Laboratory Tests 04/11/19 13:20 Vital Signs Date Time Temp Pulse Resp B/P (MAP) Pulse Ox O2 Delivery O2 Flow Rate FiO2 04/11/19 11:25 16 04/11/19 08:29 70 102/60 04/11/19 06:37 99.2 04/11/19 06:00 94 Room Air 04/07/19 05:55 2.0 I&O- Last 24 Hours up to 6 AM 04/11/19 06:00 Intake Total 1440 ml Output Total 450 ml Balance 990 ml CLEVELAND HOLLY MD Apr 11, 2019 15:16
[2019-04-11] MEDS: ACETAMINOPHEN TAB 650MG DOSE (2X325MG) PO PRN (16:46)
[2019-04-11] MEDS: RIVAROXABAN 10 MG TAB (XARELTO) PO SCH (17:18)
[2019-04-11] MEDS: VALSARTAN 80 MG TAB (DIOVAN) PO SCH (21:48)
[2019-04-11 22:00] VITALS: BP 142/67
[2019-04-12] MEDS: PERCOCET 5MG/325MG TAB PO PRN ×4 (04:00→20:37)
[2019-04-12 06:00] VITALS: BP 121/51
[2019-04-12] MEDS: LABETALOL 100 MG TAB PO SCH ×2 (08:22→20:38)
[2019-04-12] MEDS: MULTIVITAMINS/MINERALS THERAP 1 TAB PO SCH (08:22)
[2019-04-12] MEDS: MAGNESIUM OXIDE 400 MG TAB (MAG-OX) PO SCH (08:22)
[2019-04-12] MEDS: ceFAZolin SOD 2 GM in IV 1 EA IV SCH ×2 (08:22→16:18)
[2019-04-12] MEDS: MOM 30ML SUSPENSION UDC PO SCH (08:24)
[2019-04-12] MEDS: OMEPRAZOLE 20 MG CAP PO SCH (08:24)
[2019-04-12] MEDS: ATORVASTATIN 20 MG TAB PO SCH (08:24)
[2019-04-12] MEDS: GABAPENTIN 300 MG CAP PO SCH ×3 (08:24→20:36)
[2019-04-12] MEDS: MIRALAX *UNIT DOSE* 17GM PACKET PO SCH (08:24)
[2019-04-12] MEDS: **hydrALAZINE HCL** 25 MG TAB PO SCH ×2 (09:00→20:36)
[2019-04-12] MEDS ORDERED: PERCOCET 5MG/325MG TAB PO ONE (10:45)
[2019-04-12] MEDS: amLODIPine 5 MG TAB PO SCH (13:35)
[2019-04-12] MEDS: NITROGLYCERIN 0.4 MG/HR PATCH TD SCH (13:36)
[2019-04-12 14:00] VITALS: BP 117/56
--- NOTE | 2019-04-12 16:02 | IPNPDOC ---
Text Note Date of Service The patient was seen on 04/12/19. NOTE SUBJECTIVE: Mr. Lyons has walked with physical therapy today with minimal dizziness. He is status post left hip arthroplasty. He had been having difficulty with management of his blood pressure medications. He is currently complaining of arthritic pain to his knee. OBJECTIVE: Please see vital signs below--patient has been afebrile for greater than 24 hours and his systolic blood pressure has been stable Physical exam: HENT: Neck is supple, no adenopathy or thyromegaly, oral mucosa is moist, no diaphoresis. Cardiovascular: Occasional irregular rhythm, generally regular rate, no murmur Respiratory: Good air movement with no abnormal breath sounds. Abdomen: Soft, nontender, nondistended. Extremities: The left hip operative site remains intact, but continues with serous drainage, site is also moderately tender Neuro: No focal neuromotor or sensory deficit ASSESSMENT/PLAN: Mr. Lyons is postop day #6 from left hip total arthroplasty due to avascular necrosis. He has done remarkably well from a mobility standpoint. However, intermittent dizziness when upright is concerning for increased fall risk. Patient has not had remarkable postop blood loss. Patient has had some fever. He has not had leukocytosis. There is some serous drainage from the operative site; it is not purulent. Patient is performing incentive spirometry and we will continue to follow for signs of infection. Surgery service is added Anc. The patient had concerns for constipation. He reported being nonresponsive to milk of magnesia and MiraLAX. He had tried other things that work for him such as coffee and yogurt. He did have response to magnesium citrate. Continues with postop bowel care. The patient has had dizziness with being upright and with ambulation. Further conversation with the patient reveals that his labetalol dosage is incorrect. It had been decreased by his primary care provider to 100 mg per dose. The patient states he thought it was already included in his medication record. It has been corrected. However, we will hold the medication for systolic blood pressures less than 120. The patient does have a considerable history of hypertension; he has been on medications inclusive of clonidine, Norvasc, labetalol, hydralazine, valsartan. He likely has been having trouble with hypotension prior to admission; he had had to have the dosage of his labetalol and valsartan cut in half. I have reduced dose dosages with parameters and we are holding the hydralazine and Norvasc. I have stopped the clonidine entirely. I am also transitioning him from the [facility] as this may be contributory. Patient states he takes "arthritis strength" Tylenol at home. VS,Fishbone, I+O VS, Fishbone, I+O Vital Signs Date Time Temp Pulse Resp B/P (MAP) Pulse Ox O2 Delivery O2 Flow Rate FiO2 04/12/19 14:00 99.4 86 18 117/56 (76) 97 Room Air 04/07/19 05:55 2.0 I&O- Last 24 Hours up to 6 AM 04/12/19 06:00 Intake Total 1380 ml Output Total 100 ml Balance 1280 ml CLEVELAND HOLLY MD Apr 12, 2019 16:02
[2019-04-12] MEDS: RIVAROXABAN 10 MG TAB (XARELTO) PO SCH (16:18)
[2019-04-12] MEDS ORDERED: ACETAMINOPHEN 500 MG TAB PO ONE (17:00)
[2019-04-12] MEDS: VALSARTAN 80 MG TAB (DIOVAN) PO SCH (20:37)
[2019-04-12 22:00] VITALS: BP 117/52
[2019-04-13] MEDS: ceFAZolin SOD 2 GM in IV 1 EA IV SCH ×3 (00:23→16:31)
[2019-04-13] MEDS: PERCOCET 5MG/325MG TAB PO PRN ×5 (01:54→21:46)
[2019-04-13 06:00] VITALS: BP 116/52
[2019-04-13 06:28] LABS: ERYTHROCYTE SEDIMENTATION RATE 107 mm/hr (0-20)
[2019-04-13 08:15] LABS: HEMATOCRIT 30.4 % (42.0-52.0); HEMOGLOBIN 9.6 g/dl (13.5-17.5); MEAN CORPUSCULAR HEMOGLOBIN 28.8 pg (27.0-33.0); MEAN CORPUSCULAR HGB CONC 31.6 g/dl (32.0-36.5); MEAN CORPUSCULAR VOLUME 91.3 fl (80.0-96.0); PLATELET COUNT, AUTOMATED 330 10^3/uL (150-450); RED BLOOD COUNT 3.33 10^6/uL (4.30-6.10)
[2019-04-13] MEDS: MOM 30ML SUSPENSION UDC PO SCH (09:00)
[2019-04-13] MEDS: MIRALAX *UNIT DOSE* 17GM PACKET PO SCH (09:00)
[2019-04-13] MEDS: NITROGLYCERIN 0.4 MG/HR PATCH TD SCH (09:43)
[2019-04-13] MEDS: MAGNESIUM OXIDE 400 MG TAB (MAG-OX) PO SCH (09:43)
[2019-04-13] MEDS: GABAPENTIN 300 MG CAP PO SCH ×3 (09:43→21:44)
[2019-04-13] MEDS: OMEPRAZOLE 20 MG CAP PO SCH (09:43)
[2019-04-13] MEDS: ATORVASTATIN 20 MG TAB PO SCH (09:43)
[2019-04-13] MEDS: **hydrALAZINE HCL** 25 MG TAB PO SCH ×2 (09:43→21:45)
[2019-04-13] MEDS: amLODIPine 5 MG TAB PO SCH (09:44)
[2019-04-13] MEDS: LABETALOL 100 MG TAB PO SCH ×2 (09:44→21:45)
[2019-04-13] MEDS: ACETAMINOPHEN 500 MG TAB PO SCH ×2 (09:44→21:44)
[2019-04-13] MEDS: MULTIVITAMINS/MINERALS THERAP 1 TAB PO SCH (09:44)
[2019-04-13 09:58] VITALS: BP 138/72
[2019-04-13 14:09] VITALS: BP 127/68
[2019-04-13] MEDS: RIVAROXABAN 10 MG TAB (XARELTO) PO SCH (17:01)
[2019-04-13 21:45] VITALS: BP 129/68
[2019-04-13] MEDS: VALSARTAN 80 MG TAB (DIOVAN) PO SCH (21:45)
[2019-04-13 21:46] VITALS: BP 129/68
--- NOTE | 2019-04-13 22:31 | IPNPDOC ---
Text Note Date of Service The patient was seen on 04/13/19. NOTE SUBJECTIVE: Mr. Lyons has walked with physical therapy with minimal dizziness. He is status post left hip arthroplasty. He had been having difficulty with management of his blood pressure medications. He is currently complaining of arthritic pain to his knee. He is concerned about ongoing serous drainage from his operative site. OBJECTIVE: Please see vital signs below--patient has been afebrile for greater than 24 hours and his systolic blood pressure has been stable on his current regimen. Physical exam: HENT: Neck is supple, no adenopathy or thyromegaly, oral mucosa is moist, no diaphoresis. Cardiovascular: Occasional irregular rhythm, generally regular rate, no murmur Respiratory: Good air movement with no abnormal breath sounds. Abdomen: Soft, nontender, nondistended. Extremities: The left hip operative site remains intact, but continues with serous drainage, site is also moderately tender Neuro: No focal neuromotor or sensory deficit ASSESSMENT/PLAN: Mr. Lyons is postop day #7 from left hip total arthroplasty due to avascular necrosis. He has done remarkably well from a mobility standpoint. However, intermittent dizziness when upright is concerning for increased fall risk. Patient has not had remarkable postop blood loss. Patient has had some fever. He has not had leukocytosis. There is some serous drainage from the operative site; it is not purulent. Patient is performing incentive spirometry and we will continue to follow for signs of infection. Surgery service has added [facility]. The patient had concerns for constipation. He reported being nonresponsive to milk of magnesia and MiraLAX. He had tried other things that work for him such as coffee and yogurt. He did have response to magnesium citrate. Continues with postop bowel care. The patient has had dizziness with being upright and with ambulation. Further conversation with the patient reveals that his labetalol dosage is incorrect. It had been decreased by his primary care provider to 100 mg per dose. The patient states he thought it was already included in his medication record. It has been corrected. However, we will hold the medication for systolic blood pressures less than 120. The patient does have a considerable history of hypertension; he has been on medications inclusive of clonidine, Norvasc, labetalol, hydralazine, valsartan. He likely has been having trouble with hypotension prior to admission; he had had to have the dosage of his labetalol and valsartan cut in half. I have reduced dose dosages with parameters and we are holding the hydralazine and Norvasc. I have stopped the clonidine entirely. I I have transitioned him from the [facility] as this may be contributory. Patient states he takes "arthritis strength" Tylenol at home. VS,Fishbone, I+O VS, Fishbone, I+O Laboratory Tests 04/13/19 05:30 Vital Signs Date Time Temp Pulse Resp B/P (MAP) Pulse Ox O2 Delivery O2 Flow Rate FiO2 04/13/19 21:46 97.5 85 16 129/68 (88) 95 Room Air 04/13/19 17:00 2.0 I&O- Last 24 Hours up to 6 AM 04/13/19 06:00 Intake Total 880 ml Output Total 0 ml Balance 880 ml CLEVELAND HOLLY MD Apr 13, 2019 22:31
[2019-04-14] MEDS: ceFAZolin SOD 2 GM in IV 1 EA IV SCH ×2 (01:13→08:02)
[2019-04-14] MEDS: PERCOCET 5MG/325MG TAB PO PRN ×3 (02:08→12:06)
[2019-04-14] MEDS ORDERED: XARE10TA PO (05:57)
[2019-04-14] MEDS ORDERED: KEFL500C17 PO (05:57)
[2019-04-14 06:00] VITALS: BP 122/63
[2019-04-14] MEDS: GABAPENTIN 300 MG CAP PO SCH (08:03)
[2019-04-14] MEDS: MULTIVITAMINS/MINERALS THERAP 1 TAB PO SCH (08:03)
[2019-04-14] MEDS: MAGNESIUM OXIDE 400 MG TAB (MAG-OX) PO SCH (08:03)
[2019-04-14] MEDS: OMEPRAZOLE 20 MG CAP PO SCH (08:03)
[2019-04-14] MEDS: ATORVASTATIN 20 MG TAB PO SCH (08:03)
[2019-04-14] MEDS: LABETALOL 100 MG TAB PO SCH (08:04)
[2019-04-14] MEDS: **hydrALAZINE HCL** 25 MG TAB PO SCH (08:04)
[2019-04-14] MEDS: amLODIPine 5 MG TAB PO SCH (08:04)
[2019-04-14] MEDS: NITROGLYCERIN 0.4 MG/HR PATCH TD SCH (08:04)
[2019-04-14] MEDS: MIRALAX *UNIT DOSE* 17GM PACKET PO SCH (08:05)
[2019-04-14] MEDS: MOM 30ML SUSPENSION UDC PO SCH (08:05)
[2019-04-14] MEDS: ACETAMINOPHEN 500 MG TAB PO SCH (08:05)
--- NOTE | 2019-04-14 20:53 | IPNPDOC ---
Text Note Date of Service The patient was seen on 04/14/19. NOTE SUBJECTIVE: No any acute events overnight. He is status post left hip arthroplasty. OBJECTIVE: Please see vital signs below--patient has been afebrile for greater than 24 hours and his systolic blood pressure has been stable on his current regimen. Physical exam: HENT: Neck is supple, no adenopathy or thyromegaly, oral mucosa is moist, no diaphoresis. Cardiovascular: Occasional irregular rhythm, generally regular rate, no murmur Respiratory: Good air movement with no abnormal breath sounds. Abdomen: Soft, nontender, nondistended. Extremities: The left hip operative site remains intact, but continues with serous drainage, site is also moderately tender Neuro: No focal neuromotor or sensory deficit ASSESSMENT/PLAN: Dizziness Resolved postop day #8 from left hip total arthroplasty due to avascular necrosis. Constipation Resolved after laxative Hypertension Continue home meds with parameters We stopped clonidine VS,Fishbone, I+O VS, Fishbone, I+O Vital Signs Date Time Temp Pulse Resp B/P (MAP) Pulse Ox O2 Delivery O2 Flow Rate FiO2 04/14/19 12:06 18 04/14/19 06:00 98.0 70 122/63 (82) 96 Room Air 04/13/19 17:00 2.0 I&O- Last 24 Hours up to 6 AM 04/14/19 06:00 Intake Total 2540 ml Output Total 300 ml Balance 2240 ml SUZI MELENDEZ DO Apr 14, 2019 20:53
== END 2019-04-14 12:40 | disposition home health service (06) | DRG 481 ==
LOC: M OR 10:54 → M MS5PR 16:40
PROVIDERS: ADMIT Orthopaedic Surgery; ATTEND Orthopaedic Surgery
PROC: 0QR70JZ Replacement of Left Upper Femur with Synthetic Substitute, Open Approach (ICD-10-PCS; principal; 2019-04-06 15:45)
DX: M16.12 Unilateral primary osteoarthritis, left hip (principal); M87.052 Idiopathic aseptic necrosis of left femur; Z79.82 Long term (current) use of aspirin; Z79.899 Other long term (current) drug therapy; Z88.8 Allergy status to other drugs, medicaments and biological substances; I10 Essential (primary) hypertension; E78.5 Hyperlipidemia, unspecified; K21.9 Gastro-esophageal reflux disease without esophagitis; I25.2 Old myocardial infarction; Z95.2 Presence of prosthetic heart valve; G62.9 Polyneuropathy, unspecified; I16.0 Hypertensive urgency